=== PATIENT | female | born 1990 | race Caucasian/White ===

== ENCOUNTER 2022-01-31 18:12 | Emergency (ER) | payer OTHER ==
[~2022-01-31] VITALS: Ht 157.5 cm; Wt 39.5 kg
[2022-01-31] MEDS ORDERED: ONDANSETRON ODT8 MG PO (18:38)
[2022-01-31] MEDS ORDERED: KETOROLAC PO (18:39)
[2022-01-31] MEDS ORDERED: CYCLOBENZAPRINE10 MG PO (18:39)
--- OUTSIDE RECORDS SUMMARY | 2022-01-31 19:58 | XMS ---
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 No recent Security Events currently on file CRITERIA MET - [facility] - [facility] - 2 Visits in 30 Days - 6 ED Visits in 6 Months CARE PROVIDERS CHIKI GLOVER Nurse Practitioner: Family Current PHONE: [phone] SACHA LIM [facility] Current PHONE: Unknown Ciarra Cedillo Community Health Worker 04/22/2018-Current PHONE: [phone] CATHY STEWART Physician Local Area Network Administrator: Medical Current PHONE: Unknown Care Guidelines exist for the following facilities: [facility] ( 01/03/2019 ) [place] VISIT COUNT ([address] 8 [facility] 6 [facility] 1 [place] [facility] 1 [facility] TOTAL 17 NOTE: Visits indicate total known visits. ED/UCC VISIT TRACKING (12 MO.) 01/31/2022 18:14 [facility] [place] TYPE: Emergency COMPLAINT: - POST OP PROBLEM 01/07/2022 16:29 [employer] OR TYPE: Emergency DIAGNOSES: - FOOT INJURY - Unspecified fracture of right calcaneus, initial encounter for closed fracture 01/07/2022 15:50 [facility] TYPE: Emergency COMPLAINT: - R ANKLE INJURY DIAGNOSES: - R ANKLE INJURY 12/15/2021 15:11 [employer] [place] TYPE: Emergency DIAGNOSES: - ABD PAIN MIGRAINE - Nausea with vomiting, unspecified 12/13/2021 22:55 [facility] OR TYPE: Emergency DIAGNOSES: - Cyclical vomiting syndrome unrelated to migraine - VOMITTING 10/20/2021 12:40 [facility] OR TYPE: Emergency DIAGNOSES: - Procedure and treatment not carried out because of patient's decision for other reasons - VOMITING - Left lower quadrant pain 10/09/2021 08:17 [facility] OR TYPE: Emergency DIAGNOSES: - HEADACHE, VOMITING - Migraine, unspecified, not intractable, without status migrainosus 07/17/2021 21:06 [facility] [place] TYPE: Emergency COMPLAINT: - HIP PRESSURE 07/07/2021 16:56 [facility] OR TYPE: Emergency DIAGNOSES: - Abnormal weight loss - Epigastric pain 07/05/2021 19:11 [facility] COMPLAINT: - COVID SYMPTOMS 06/20/2021 18:33 [facility] [place] [facility]: Emergency COMPLAINT: - MIGRAINE 06/20/2021 15:24 [facility]: Emergency COMPLAINT: - HEADACHE, VOMITING 05/16/2021 19:51 [facility]: Emergency COMPLAINT: - ABD / VOMITING 05/12/2021 21:00 [facility]: Emergency COMPLAINT: - NASEAU, HEADACHE 05/05/2021 15:42 [facility] OR TYPE: Emergency DIAGNOSES: - Cannabis use, unspecified, uncomplicated - bump on abdm - Nausea - Left lower quadrant pain - Nausea with vomiting, unspecified 03/22/2021 17:28 [facility]: [facility] COMPLAINT: - VOMITING, HEAD HURTS 02/27/2021 07:35 [facility]: Emergency COMPLAINT: - headache, n/v INPATIENT VISIT TRACKING (12 MO.) 01/23/2022 07:27 [facility] [place] TYPE: Surgery DIAGNOSES: - Nausea - Displaced fracture of body of right calcaneus, initial encounter for closed fracture [email or web address]
[2022-01-31] MEDS ORDERED: COLACE100 MG PO (20:11)
[2022-01-31] MEDS ORDERED: PERCOCET 5-3251 EACH PO (20:11)
[2022-01-31] MEDS ORDERED: ONDANSETRON HCL4 MG PO (20:11)
== END 2022-01-31 21:21 | disposition home or self-care (01) ==
LOC: ED 18:12
DX: G89.18 Other acute postprocedural pain (principal); Z88.5 Allergy status to narcotic agent; Z79.899 Other long term (current) drug therapy
CPT/HCPCS: 96374; 96375; 99283-25; A9270; J1170; J2405

== ENCOUNTER 2022-02-14 15:39 | Emergency (ER) | payer OTHER ==
[~2022-02-14] VITALS: Ht 157.5 cm; Wt 42.1 kg
[~2022-02-14 15:39] MED LIST: COLACE100 MG PO; CYCLOBENZAPRINE10 MG PO; KETOROLAC PO; ONDANSETRON HCL4 MG PO; ONDANSETRON ODT8 MG PO; PERCOCET 5-3251 EACH PO
--- OUTSIDE RECORDS SUMMARY | 2022-02-14 15:40 | XMS ---
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 No recent Security Events currently on file CRITERIA MET - [facility] - [facility] - 2 Visits in 30 Days - 6 ED Visits in 6 Months CARE PROVIDERS CHIKI GLOVER Nurse Practitioner: Family Current PHONE: [phone] SACHA LIM [facility] Current PHONE: Unknown Ciarra Cedillo Community Health Worker 04/22/2018-Current PHONE: [phone] CATHY STEWART Physician Vp Project: Medical Current PHONE: Unknown Care Guidelines exist for the following facilities: [facility] ( 01/03/2019 ) [place] [facility] TOTAL 18 NOTE: Visits indicate total known visits. 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 - Allergy status to narcotic agent 01/07/2022 16:29 [facility] DIAGNOSES: - Unspecified fracture of right calcaneus, initial encounter for closed fracture - FOOT INJURY 01/07/2022 15:50 [facility] [employer] [facility] OR TYPE: Emergency COMPLAINT: - R ANKLE INJURY DIAGNOSES: - R ANKLE INJURY 12/15/2021 15:11 [employer] [place] TYPE: Emergency DIAGNOSES: - Nausea with vomiting, unspecified - ABD PAIN MIGRAINE 12/13/2021 22:55 [facility] [place] TYPE: Emergency DIAGNOSES: - VOMITTING - Cyclical vomiting syndrome unrelated to migraine 10/20/2021 12:40 [facility] [place] TYPE: Emergency DIAGNOSES: - VOMITING - Left lower quadrant pain - Procedure and treatment not carried out because of patient's decision for other reasons 10/09/2021 08:17 [employer] [place] TYPE: Emergency DIAGNOSES: - Migraine, unspecified, not intractable, without status migrainosus - HEADACHE, VOMITING 07/17/2021 21:06 [facility] TYPE: Emergency COMPLAINT: - HIP PRESSURE 07/07/2021 16:56 [facility] [place] TYPE: Emergency DIAGNOSES: - Epigastric pain - Abnormal weight loss 07/05/2021 19:11 [facility] COMPLAINT: - COVID SYMPTOMS 06/20/2021 18:33 [facility] COMPLAINT: - MIGRAINE 06/20/2021 15:24 [facility] COMPLAINT: - HEADACHE, VOMITING 05/16/2021 19:51 [facility] COMPLAINT: - ABD / VOMITING 05/12/2021 21:00 [facility] COMPLAINT: - NASEAU, HEADACHE 05/05/2021 15:42 [facility] OR TYPE: Emergency DIAGNOSES: - bump on abdm - Nausea with vomiting, unspecified - Nausea - Cannabis use, unspecified, uncomplicated - Left lower quadrant pain 03/22/2021 17:28 [facility] COMPLAINT: - VOMITING, HEAD HURTS 02/27/2021 07:35 [facility] [place] [place] TYPE: Emergency COMPLAINT: - headache, n/v INPATIENT VISIT TRACKING (12 MO.) 01/23/2022 07:27 [facility] OR TYPE: Surgery DIAGNOSES: - Displaced fracture of body of right calcaneus, initial encounter for closed fracture - Nausea [email or web address]
== END 2022-02-14 17:03 | disposition home or self-care (01) ==
LOC: ED 15:39
DX: S92.001D Unspecified fracture of right calcaneus, subsequent encounter for fracture with routine healing (principal)
CPT/HCPCS: 29515; 73630; 99283-25; Q0163

== ENCOUNTER 2024-08-16 12:40 | Emergency (ER) | payer OTHER ==
[~2024-08-16] VITALS: Ht 157.5 cm; Wt 41.7 kg
--- OUTSIDE RECORDS SUMMARY | ~2024-08-16 | XMS | Continuity of Care Document ---
Demographics + + + | Address | [address] | | | [place] [address] | + + + | Preferred Language | Unknown | + + + | Marital Status | | + + + | Advent Affiliation | Unknown | + + + | Race | White | + + + | Ethnic Group | Not or | + + + Author + + + | Author | [facility] | + + + | Organization | [facility] | + + + | Address | [address] | | | [place] [address] | + + + | Phone | | + + + Care Team Providers + + + + | Care Reversing Mill Roller Name | Role | Phone | + + + + Unavailable | Unavailable | + + + + Unavailable | Unavailable | + + + + Allergies No information. Encounters No information. Functional Status No information. Immunizations No information. Medications + + + + | date | description | facility | + + + + | 2024-05-18 00:00 | triamcinolone acetonide 1 | [facility] | | | MG/ML Topical Cream | | + + + + | 2024-05-18 00:00 | Triamcinolone Acetonide | [facility] | | | 0.1% External Cream | | + + + + Problems No information. Procedures No information. Results/Labs No information. Social History + + + + | date | description | facility | + + + + | 2024-05-18 00:00 | Never smoked tobacco | [facility] | | | (finding) | | + + + + | 2024-05-18 00:00 | Unknown if ever smoked | [facility] | | | | | + + + + | 2024-05-18 00:00 | Smoker (finding) | [facility] | | | | | + + + + Vital Signs + + +---------+ + | date | measurement | value | units | + + +---------+ + | 2024-05-18 00:00 | BMI | 19.5 | 1 | + + +---------+ + | 2024-05-18 00:00 | BP_diastolic | 60 | mmHg | + + +---------+ + | 2024-05-18 00:00 | BP_systolic | 98 | mmHg | + + +---------+ + | 2024-05-18 00:00 | BSA | 1.4 | 1 | + + +---------+ + | 2024-05-18 00:00 | heart_rate | 1|1| | completed | + + +---------+ + | 2024-05-18 00:00 | heart_rate | 90 | /min | + + +---------+ + | 2024-05-18 00:00 | height_metric | 152.4 | cm | + + +---------+ + | 2024-05-18 00:00 | height_standard | 60 | in | + + +---------+ + | 2024-05-18 00:00 | o2_saturation | 99 | % | + + +---------+ + | 2024-05-18 00:00 | temperature_metric | 36.67 | C | | | | | | + + +---------+ + | 2024-05-18 00:00 | | 98 | F | | | temperature_standar | | | | | d | | | + + +---------+ + | 2024-05-18 00:00 | weight_metric | 45.27 | kg | + + +---------+ + | 2024-05-18 00:00 | weight_standard | 99.8 | lb | + + +---------+ +"
[2024-08-16] MEDS ORDERED: CLOBETASOL PROP15 GM TOP (12:55)
[2024-08-16] MEDS ORDERED: RIZATRIPTAN10 M1 PO (12:55)
[2024-08-16] MEDS ORDERED: TRIAMCINOLONE A15 G1 TOP (12:55)
[2024-08-16] MEDS ORDERED: DEXAMETHASONE SOD PHOS 10 MG/ML VIAL IM ONE (13:00)
[2024-08-16] MEDS ORDERED: hydrOXYzine pamoate 50 MG CAP PO ONE (13:00)
[2024-08-16] MEDS ORDERED: HYDROXYZINE HCL25 MG PO (13:13)
[2024-08-16] MEDS ORDERED: METHYLPREDNISOLO4 M1 PO (13:13)
[2024-08-16 13:45] VITALS: BP 128/87
== END 2024-08-16 13:47 | disposition home or self-care (01) ==
LOC: ED 12:40
DX: R21 Rash and other nonspecific skin eruption (principal); Z88.5 Allergy status to narcotic agent; Z79.899 Other long term (current) drug therapy
CPT/HCPCS: 96372; 99282; J1100